=== PATIENT | female | born 1995 | race Caucasian/White ===

== ENCOUNTER 2017-06-24 09:22 | Emergency (ER) | END 2017-06-24 12:28 | disposition home or self-care (01) ==

== ENCOUNTER 2017-06-27 18:19 | Outpatient (CLI) | END 2017-06-27 22:50 | disposition home or self-care (01) ==

== ENCOUNTER 2017-06-27 22:56 | Emergency (ER) | END 2017-06-28 00:04 | disposition left against medical advice (07) ==

== ENCOUNTER 2017-09-02 14:10 | Inpatient (IN) | END 2017-09-04 16:45 | disposition home or self-care (01) | DRG 775 ==